=== PATIENT | female | born 1955 | race Caucasian/White ===

== ENCOUNTER 2018-04-07 18:34 | Emergency (ER) | payer MEDICARE, SELFPAY ==
[2018-04-07 18:42] VITALS: BP 150/92; PULSE 71; RESP 16; TEMP 36.5; BMI 24.9
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
[2018-04-07] MEDS: TET,DIPH,PERTUSS(ACELL),VAC/PF 0.5 ML SYRINGE IM (20:02)
[2018-04-07 21:36] VITALS: BP 159/95; PULSE 82; RESP 15; O2SAT 100
[2018-04-07] MEDS: cephALEXin 250 MG PREPACK 1 BOTTLE MISC (21:38)
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
== END 2018-04-07 21:45 | disposition home or self-care (01) ==
PROVIDERS: Emergency Provider Internal Medicine; PCP Student in an Organized Health Care Education/Training Program
DX: S61.412A Laceration without foreign body of left hand, initial encounter (principal); W26.0XXA Contact with knife, initial encounter
CPT/HCPCS: 12001; 73130; 90471; 99282; 99283; 90715

== ENCOUNTER → 2018-05-11 07:28 | Outpatient (CLI) | payer MEDICARE, SELFPAY ==
--- NOTE | 2018-05-11 | DI.US.S_ITS ---
PROCEDURE: US RENAL COMPLETE INDICATIONS: RENAL MASS TECHNIQUE: Real-time scanning was performed of the kidneys and bladder, with image documentation. COMPARISON: [facility], CT, ABDOMEN W&WO CONTRAST, 11/25/2017, 11:56. [facility], US, RENAL COMPLETE, 11/13/2017, 12:02. FINDINGS: Kidneys: Kidneys are normal in size. Right kidney measures 10.9 cm long; left kidney measures 10.3 cm long. Right renal cortical thickness is 1.7 cm; left renal cortical thickness is 1.4 cm. Renal cortical echotexture is normal. No hydronephrosis or nephrolithiasis. Bilateral angiomyolipomas are reidentified. In the right upper pole, the lesion measures 14 x 15 x 16 mm compared to 14 x 16 x 16 mm on prior ultrasound. In the left lower pole, the lesion measures 16 x 19 x 22 mm compared to 16 x 17 x 17 mm on prior ultrasound. Bladder: The urinary bladder was nondistended and not examined on this study. Miscellaneous: No free pelvic fluid. IMPRESSION: Bilateral hyperechoic cortical mass lesions remain consistent with angiomyolipomas and showed no significant change in size from prior exam on 6 month followup. Additional followup in one year is suggested. Dictated by: Zurdo Orr M.D. on 05/11/2018 at 8:16 Approved by: Zurdo Orr M.D. on 05/11/2018 at 8:23
== END ==
PROVIDERS: PCP Student in an Organized Health Care Education/Training Program; Visit Provider Physician Assistant
DX: N28.89 Other specified disorders of kidney and ureter (principal)
CPT/HCPCS: 76770

== ENCOUNTER → 2018-12-10 11:31 | Outpatient (CLI) | payer MEDICARE, SELFPAY ==
--- NOTE | 2018-12-10 | DI.US.S_ITS ---
PROCEDURE: US RENAL COMPLETE INDICATIONS: BENIGN LIPOMATOUS NEOPLASM OF KIDNEY TECHNIQUE: Real-time scanning was performed of the kidneys and bladder, with image documentation. COMPARISON: [facility], US, US RENAL COMPLETE, 05/11/2018, 7:56. [facility], CT, ABDOMEN W&WO CONTRAST, 11/25/2017, 11:56. [facility], US, RENAL COMPLETE, 11/13/2017, 12:02. FINDINGS: Kidneys: Kidneys are normal in size. Right kidney measures 11.4 cm long; left kidney measures 10.6 cm long. Right renal cortical thickness is 1.6 cm; left renal cortical thickness is 1.5 cm. Renal cortical echotexture is normal. No hydronephrosis. Bilateral echogenic cortical renal masses redemonstrated unchanged measuring up 1.7 cm on the right and 1.5 cm on the left consistent with angiomyolipomas. Bladder: Pre-void bladder volume is 177 mL. Post-void residual is 9 mL. Pre-void images demonstrate no intraluminal masses or stones. On pre-void images, bilateral ureteral jets are noted with color Doppler interrogation. (Of note, ureteral jets may not be detectable in up to 25% of cases due to insufficient differences in specific gravity between ureteral and bladder urine). Miscellaneous: No free pelvic fluid. IMPRESSION: Bilateral renal angiomyolipomas unchanged. Continued sonographic surveillance recommended. Dictated by: Yoseph SINGH Interpreted: Zaynab Villalba MD on 12/10/2018 at 13:57 Approved by: Zaynab Villalba M.D. on 12/10/2018 at 14:49
== END ==
PROVIDERS: PCP Nurse Practitioner Family; Visit Provider Urology
DX: D17.71 Benign lipomatous neoplasm of kidney (principal)
CPT/HCPCS: 76770

== ENCOUNTER 2019-05-13 06:31 | Observation (INO) | payer MEDICARE, SELFPAY ==
[2019-04-26 08:19] VITALS: BMI 23.1
[2019-05-13] VITALS (38 sets, daily range): BP systolic 107–164; BP diastolic 63–112; PULSE 59–96; RESP 9–36; TEMP 36.1–37.1; O2SAT 92–98; BMI 22.7
--- NOTE | 2019-05-13 | DI.RAD.S_ITS ---
PROCEDURE: XR CHEST 1V INDICATIONS: PNEUMOTHORAX POST OPERATIVE TECHNIQUE: One view of the chest was acquired. COMPARISON: [facility], CR, XR CHEST 1V, 05/13/2019, 10:40. FINDINGS: Surgical changes and devices: Port-A-Cath is present. Suture material is noted overlying the left upper quadrant. Lungs and pleura: Previously identified left pneumothorax is unchanged compared to prior exam. Mediastinum: Patchy areas of opacity are present within the bases and retrocardiac region appearing slightly more prominent when compared to prior exam. Bones and chest wall: No suspicious bony lesions. Overlying soft tissues appear unremarkable. IMPRESSION: Stable appearance of left pneumothorax. Increased retrocardiac and bibasilar opacities which are suspected to represent atelectasis. Small areas of superimposed fluid cannot be excluded. Dictated by: Jadyn Dale M.D. on 05/13/2019 at 15:36 Approved by: Jadyn Dale M.D. on 05/13/2019 at 15:37
[2019-05-13] MEDS: LACTATED RINGERS 1,000 ML 42 ML IV ×2 (07:07→09:54)
--- NOTE | 2019-05-13 07:42 | PM.HP.1 ---
History of Present Illness Date Patient Seen: 05/13/19 Time Patient Seen: 07:40 Chief complaint: [id number] Narrative: The patient is a woman who gets infusions of gammaglobulin periodically in is in need of IV access. She is here for Port-A-Cath. She is right-hand dominant. Patient History Medical History Easy bruisability (Acute) Fibromyalgia (Acute) H/O: hysterectomy (Acute ~10/1998) Hx of Sjogren's disease (Acute) Hypogammaglobulinemia (Acute) Long-term current use of intravenous immunoglobulin (IVIG) (Acute) Scar tissue (Acute ~01/2013) Sinus drainage (Acute) Surgical History History of 3 sections (Acute) History of dilation and curettage (Acute ~1972) History of lumbar spinal fusion (Acute ~11/1998) Hx of appendectomy (Acute ~1978) Hx of bilateral cataract extraction (Acute ~09/2012) Hx of cholecystectomy (Acute ~06/1985) Hx of discectomy (Acute ~02/1997) Hx of hand surgery (Acute ~07/2012) Hx of rhinoplasty (Acute ~09/2012) Hx of tonsillectomy (Acute ~1961) Hx of tubal ligation (Acute ~1981) S/P gastric bypass (Acute ~06/1985) Social History household members: spouse Smoking Status: Never smoker Family & Social History Social History: household members spouse Tobacco & Substance use: Smoking Status Never smoker alcohol intake frequency 0-2 drinks per day Substance Use Type does not use Meds Home Medications Medication Instructions Recorded Confirmed Type hydrocodone-acetaminophen [[place]] 1 tab PO PRN PRN #0 tab 05/17/16 05/13/19 History doxazosin 8 mg PO HS #0 03/07/17 05/13/19 History eszopiclone [Lunesta] 3 mg PO HSP PRN #0 10/04/17 05/13/19 History ipratropium bromide 1 spray INTRANASAL DAILY #0 10/04/17 05/13/19 History amoxicillin 500 mg PO QDAY 05/14/18 07/18/19 History duloxetine [Cymbalta] 60 mg PO DAILY 06/30/18 05/13/19 History fentanyl 25 mcg TRANSDERMAL Q72H 06/30/18 05/13/19 History cyclobenzaprine 10 mg PO TID PRN 03/31/19 05/13/19 History Allergies Allergy/AdvReac Type Severity Reaction Status Date / Time Sulfa (Sulfonamide Allergy Unknown Verified 05/13/19 07:17 Antibiotics) [SULFA (SULFONAMIDE ANTIBIOTICS)] Review of Systems Review of Systems No chest pain or prior heart attacks. No breathing issues. No black or bloody bowel movements. No seizures or blackouts. Exam Vital Signs (past 8 hours): - 05/13/19 07:04 Temperature 97.7 F Pulse Rate 69 Respiratory Rate 16 Blood Pressure 130/78 Pulse Oximetry 98 Oxygen Delivery Method Room Air Narrative Exam Narrative: Pleasant cooperative patient no apparent distress. Lungs are clear to auscultation. No rales or rhonchi. Heart regular rate and rhythm no murmur gallop. Patient is alert and oriented x3. No skin lesions seen on the chest wall. No nodes felt in the neck or supraclavicular areas and no bruit in the neck. Assessment & Plan Assessment & Plan narrative: Patient for Port-A-Cath. I have discussed the procedure and rationale with her. Risks of bleeding, infection, lung collapse which would necessitated tube placed in her chest, DVT with possible arm swelling or pulmonary embolism were discussed. She appears to understand wishes to proceed.
[2019-05-13] MEDS: CEFAZOLIN 2 GM/100 ML FROZ.PIGGY IV (07:44)
--- NOTE | 2019-05-13 07:46 | P.HP_ITS ---
History of Present Illness Date Patient Seen: 05/13/19 Time Patient Seen: 07:40 Chief complaint: [id number] Narrative: The patient is a woman who gets infusions of gammaglobulin periodically in is in need of IV access. She is here for Port-A-Cath. She is right-hand dominant. Patient History Medical History Easy bruisability (Acute) Fibromyalgia (Acute) H/O: hysterectomy (Acute ~10/1998) Hx of Sjogren's disease (Acute) Hypogammaglobulinemia (Acute) Long-term current use of intravenous immunoglobulin (IVIG) (Acute) Scar tissue (Acute ~01/2013) Sinus drainage (Acute) Surgical History History of 3 sections (Acute) History of dilation and curettage (Acute ~1972) History of lumbar spinal fusion (Acute ~11/1998) Hx of appendectomy (Acute ~1978) Hx of bilateral cataract extraction (Acute ~09/2012) Hx of cholecystectomy (Acute ~06/1985) Hx of discectomy (Acute ~02/1997) Hx of hand surgery (Acute ~07/2012) Hx of rhinoplasty (Acute ~09/2012) Hx of tonsillectomy (Acute ~1961) Hx of tubal ligation (Acute ~1981) S/P gastric bypass (Acute ~06/1985) Social History household members: spouse Smoking Status: Never smoker Family & Social History Social History: household members spouse Tobacco & Substance use: Smoking Status Never smoker alcohol intake frequency 0-2 drinks per day Substance Use Type does not use Meds Home Medications Medication Instructions Recorded Confirmed Type hydrocodone-acetaminophen [[place]] 1 tab PO PRN PRN #0 tab 05/17/16 05/13/19 History doxazosin 8 mg PO HS #0 03/07/17 05/13/19 History eszopiclone [Lunesta] 3 mg PO HSP PRN #0 10/04/17 05/13/19 History ipratropium bromide 1 spray INTRANASAL DAILY #0 10/04/17 05/13/19 History amoxicillin 500 mg PO QDAY 05/14/18 07/18/19 History duloxetine [Cymbalta] 60 mg PO DAILY 06/30/18 05/13/19 History fentanyl 25 mcg TRANSDERMAL Q72H 06/30/18 05/13/19 History cyclobenzaprine 10 mg PO TID PRN 03/31/19 05/13/19 History Allergies Allergy/AdvReac Type Severity Reaction Status Date / Time Sulfa (Sulfonamide Allergy Unknown Verified 05/13/19 07:17 Antibiotics) [SULFA (SULFONAMIDE ANTIBIOTICS)] Review of Systems Review of Systems No chest pain or prior heart attacks. No breathing issues. No black or bloody bowel movements. No seizures or blackouts. Exam Vital Signs (past 8 hours): - 05/13/19 07:04 Temperature 97.7 F Pulse Rate 69 Respiratory Rate 16 Blood Pressure 130/78 Pulse Oximetry 98 Oxygen Delivery Method Room Air Narrative Exam Narrative: Pleasant cooperative patient no apparent distress. Lungs are clear to auscultation. No rales or rhonchi. Heart regular rate and rhythm no murmur gallop. Patient is alert and oriented x3. No skin lesions seen on the chest wall. No nodes felt in the neck or supraclavicular areas and no bruit in the neck. Assessment & Plan Assessment & Plan narrative: Patient for Port-A-Cath. I have discussed the pr ocedure and rationale with her. Risks of bleeding, infection, lung collapse which would necessitated tube placed in her chest, DVT with possible arm swelling or pulmonary embolism were discussed. She appears to understand wishes to proceed.
--- NOTE | 2019-05-13 07:46 | PM.PREOP ---
Pre-operative Note Interval Note History & Physical reviewed/Exam performed by Physician: Yes Changes to H&P: No
--- NOTE | 2019-05-13 08:18 | SUR.OPER ---
Supine on padded OR bed, head on pillow, arm padded and tucked at side, legs uncrossed, safety belt at thigh, tape over blanket over lower legs .
[2019-05-13] MEDS: LIDOCAINE 1% 30 ML INJ INJ (08:33)
[2019-05-13] MEDS: HEPARIN 5,000 UNIT, SODIUM CHLORIDE 0.9% 50 ML IV (08:34)
--- NOTE | 2019-05-13 08:48 | DI.RAD.S_ITS ---
PROCEDURE: XR CHEST 1V INDICATIONS: POST OP TECHNIQUE: One view of the chest was acquired. COMPARISON: None. FINDINGS: Surgical changes and devices: Status post placement of left chest port with tip projecting in the lower SVC.. Lungs and pleura: Small apical left pneumothorax. Scattered bibasilar atelectasis. No pleural effusion. Mediastinum: Mediastinal contours appear normal. Heart size is normal. Bones and chest wall: No suspicious bony lesions. Overlying soft tissues appear unremarkable. IMPRESSION: Small left apical pneumothorax. Dr. Manning already aware of this finding at time of study interpretation. Dictated by: Kamron Talbert M.D. on 05/13/2019 at 11:08 Approved by: Kamron Talbert M.D. on 05/13/2019 at 11:10
--- NOTE | 2019-05-13 08:55 | SUR.PHASEI ---
drsg to left chest observed to be c/d/i.
[2019-05-13] MEDS: fentaNYL 100 MCG/2 ML INJ 50 MCG IV ×4 (09:09→10:03)
--- NOTE | 2019-05-13 09:12 | PM.OP.1 ---
Operative Date/Time/Diagnoses Date of procedure: 05/13/19 Time of procedure: 09:12 Pre-op diagnosis: Hypogammaglobulinemia Post-op diagnosis: same Procedure & Clinicians Procedure: Placement of left subclavian Port-A-Cath Same procedure as scheduled: Yes Indications: Need for IV access for frequent gammaglobulin infusions Surgeon: Huber Manning Click Yes if Unassisted: Yes Anesthesia Type: General Operative Notes Findings: Tip in the distal SVC. Patient has a pneumothorax. Closure Type: primary Specimen(s): none sent Prosthetic devices, grafts, tissues, transplants, or devices: Port Applied: catheter Estimated Blood Loss (mL): 5 Blood products transfused: none Procedure in detail: The patient was placed supine on operating room table and underwent general LMA anesthesia. A roll was placed between her shoulders and she was prepped and draped in the usual fashion. Local anesthetic was infiltrated in a field block fashion beneath the left clavicle. A transverse incision was made in the skin. The patient was placed in Trendelenburg and a needle inserted on 2nd attempt into the subclavian vein. Guidewire was passed and the needle removed. The wire appeared to be going into the appropriate location. A pocket was created inferior to the incision and the port placed within it. The catheter length was tapered to appropriate length. Dilator and introducer were passed over the guidewire. The guidewire was removed along with the dilator leaving the introducer in place. The catheter was passed through the introducer and the introducer was peeled away leaving the catheter tip in the very distal SVC. The port was secured to the chest wall with interrupted silk sutures. Nobles needle was inserted into the port and it was aspirated and flushed with heparinized saline. The patient was taken out of Trendelenburg. The subcu was closed with interrupted 3 0 Vicryl and skin was closed running 4 0 Vicryl subcuticular stitch and Steri-Strips. Dressing was applied and the patient was awakened extubated and taken the recovery area in good condition. Complications: other ( pneumothorax which will be observed. If it enlarges I will place a chest tube.) Condition: stable Disposition: PACU
[2019-05-13] MEDS: HYDROMORPHONE 2 MG INJ 0.25 MG IV ×8 (09:15→15:36)
--- NOTE | 2019-05-13 09:27 | SUR.PHASEI ---
Pt in stable condition, vss. Per Dr. Manning will continue to monitor and observe pt in PACU until further notice from Dr. Manning.
--- NOTE | 2019-05-13 10:35 | DI.RAD.S_ITS ---
PROCEDURE: XR CHEST 1V INDICATIONS: s/p port placement TECHNIQUE: One view of the chest was acquired. COMPARISON: [facility], , XR CHEST 1V, 05/13/2019, 9:02. FINDINGS: Surgical changes and devices: Left chest port the tip unchanged projecting in the lower SVC. Lungs and pleura: No pleural effusion. No new focal consolidation. Left apical pneumothorax may be slightly enlarged since earlier same day at 0902 hours. This could also be due to redistribution Mediastinum: Mediastinal contours appear normal. Heart size is normal. Bones and chest wall: No suspicious bony lesions. Overlying soft tissues appear unremarkable. IMPRESSION: Possible slight enlargement of left apical pneumothorax. A short interval followup chest radiograph is pending. Findings personally discussed with Dr. Manning at the time of study interpretation. No new focal consolidation. Dictated by: Kamron Talbert M.D. on 05/13/2019 at 11:10 Approved by: Kamron Talbert M.D. on 05/13/2019 at 11:17
--- NOTE | 2019-05-13 10:57 | SUR.PHASEI ---
bedside report given to RODNEY Arenas at this time. Pt in stable condition, vss. Transferred care of pt to RONDEY Arenas at this time.
--- NOTE | 2019-05-13 16:34 | SUR.PHASEII ---
Pt held r/t PAC placement to left chart resulting in a sm pneumothorax. VSS, denied SOB or pain r/t pneumothorax. Pt did experience pain r/t PAC placement and received 0.5mg of dilaudid approx 30 minutes prior to going to ICU where she was admitted under observation status. Small bore at chest tube catheter was sent with pt in the event pneumo became enlarged. Report to RODNEY Su given BS. Pt care transferred with pt in stable condition.
[2019-05-13] MEDS: HYDROCODONE/ACET 10/325 TABLET 1 TAB PO (17:20)
[2019-05-13] MEDS: AMOXICILLIN 250 MG CAPSULE 500 MG PO (20:04)
[2019-05-13] MEDS: DOXAZOSIN 4 MG TABLET 8 MG PO (20:05)
--- NOTE | 2019-05-13 21:10 | PC.NURSE ---
2100- Patient has no SOB or desaturation. Respirations are unlabored. Rate is 16 to 20. Saturation is 96-97% Will monitor.
[2019-05-14 00:07] VITALS: BP 117/65; PULSE 72; RESP 12; TEMP 36.4; O2SAT 98
[2019-05-14] MEDS: HYDROCODONE/ACET 10/325 TABLET 1 TAB PO ×4 (01:51→14:17)
[2019-05-14 05:12] VITALS: BP 111/61; PULSE 83; RESP 22; O2SAT 98
--- NOTE | 2019-05-14 06:14 | DI.RAD.S_ITS ---
PROCEDURE: XR CHEST 1V INDICATIONS: pneumothorax TECHNIQUE: One view of the chest was acquired. COMPARISON: [facility], CT, ABDOMEN W&WO CONTRAST, 11/25/2017, 11:56. [facility], CR, XR CHEST 1V, 05/13/2019, 15:14. FINDINGS: Surgical changes and devices: Left-sided port with the tip terminating at the cavoatrial junction, unchanged. Gastric and left abdomen staple lines. Lungs and pleura: Improving left-sided pneumothorax, now small and measuring approximately 0.9 cm, previously 3 cm. The pneumothorax may appear smaller do to slight leftward rotation. No pneumothorax on the right. Retrocardiac opacity is stable and favored to represent atelectasis. No pleural effusion. Mediastinum: No mediastinal shift. Heart size is normal. Bones and chest wall: No suspicious bony lesions. Small volume of subcutaneous emphysema in the left neck. IMPRESSION: Improving small left-sided pneumothorax. Left neck subcutaneous emphysema. Dictated by: Bari Alexander M.D. on 05/14/2019 at 7:09 Approved by: Bari Alexander M.D. on 05/14/2019 at 7:18
[2019-05-14 08:00] VITALS: BP 116/66; PULSE 80; RESP 18; TEMP 36.4; O2SAT 97
--- NOTE | 2019-05-14 08:17 | DI.RAD.S_ITS ---
PROCEDURE: XR CHEST 1V INDICATIONS: f/u pneumothorax TECHNIQUE: One view of the chest was acquired. COMPARISON: [facility], CR, XR CHEST 1V, 05/13/2019, 15:14. [facility], CR, XR CHEST 1V, 05/14/2019, 6:18. FINDINGS: Surgical changes and devices: Left Port-A-Cath is present. Lungs and pleura: Previously identified left pneumothorax demonstrates mild interval worsening compared to 05/14/18. Currently measures approximately 2.5 cm compared to 0.8 cm on prior exam. Retrocardiac opacity is unchanged likely atelectasis. Mediastinum: Mediastinal contours appear normal. Heart size is normal. Bones and chest wall: No suspicious bony lesions. Overlying soft tissues appear unremarkable. IMPRESSION: 1. Interval increase in size of left pneumothorax without midline shift. Dictated by: Jadyn Dale M.D. on 05/14/2019 at 9:14 Approved by: Jadyn Dale M.D. on 05/14/2019 at 9:21
[2019-05-14 13:00] VITALS: BP 131/75; PULSE 97; RESP 17; TEMP 36.9; O2SAT 98
--- NOTE | 2019-05-14 13:52 | PC.NURSE ---
Addendum entered by Kamron Suárez R.N. 05/14/19 14:19: Pt requesting to ambulate out. Declines use of w/c. States she is going to have labs drawn now. All belongings gathered and sent with pt. escorted pt to lab. Pt left in no acute distress. Original Note: Pt to d/c home per MD order. D/c packet and educational materials provided and reviewed. Pt verbalizes understanding. F/u appt with Dr. Manning and orders for CXR verbally communicated to pt. Reviewed s/s of surgical site infection. Reviewed dsg instructions. Reviewed s/s of worsening pneumothorax. Pt verbalizes understanding and states she has no further questions. Removed PIV with cath tip intact. Pt is dressing self. Awaiting ride home.
--- NOTE | 2019-05-14 14:40 | CM.IDA ---
Initial DCP Assessment Note: Pt is a 64 yo female, resident of [place], now POD#1 from Port-A-Cath placement for gammaglobulin infusions . PCP: Yazmin Holley Payer: Medicare Reviewed chart, pt discussed in multidisciplinary rounds this morning. Pt scheduled to return home today w/supportive spouse if medically cleared. Pt developed a pneumothorax post operatively so stayed the night w/ Dr Manning monitoring closely. RODNEY Coulter explained to this SHOVEL LOGGER that pt is indp and has no needs upon DC today. No needs expected from DC planning team although will remain available in case this changes today. Yazmin Foster, SHOVEL LOGGER
--- NOTE | 2019-05-14 20:36 | PM.DS.1 ---
History of Present Illness Chief complaint: [id number] Narrative: The patient is a woman who gets infusions of gammaglobulin periodically in is in need of IV access. She is here for Port-A-Cath. She is right-hand dominant. Discharge Providers Date of admission: 05/13/19 06:31 Discharge Date: 05/14/19 Primary care physician: MICHELLE Huff Consults: 05/13/19 17:01 Consult to Discharge Planning Routine Comment: Discharge provider: Huber Manning MD Summary Discharge Diagnosis: iatrogenic pnuemothorax hypogammaglobulinemia chronic chronic back pain post operation depression chronic fibromyalgia chronic Sjogren's disease chronic Hospital Course: Patient suffered an iatrogenic pneumothorax during placement of her Port-A-Cath. She had a partial deflation of her lung that stabilized and did not increase over almost 24 hours of observation. No chest tube was therefore ever inserted. She was discharged with strict instructions to come to the emergency room for increasing chest pain, increase in heart rate or shortness of breath. Status at Discharge Cognitive/behavioral status at discharge: oriented Functional status at discharge: independent ambulation Overall status at discharge: patient is progressing back to baseline Time Spent with Patient Less than 30 minutes Exam Vital Signs (past 8 hours): - 05/14/19 13:00 Temperature 98.4 F Pulse Rate 97 H Respiratory Rate 17 Blood Pressure 131/75 Pulse Oximetry 98 Oxygen Delivery Method Room Air Oxygen Flow Rate 0 Narrative Exam Narrative: Operative no apparent distress. Left side moving air but decreased when compared to the right. Dressing left infraclavicular fossa intact and dry. Heart regular rate and rhythm without murmur gallop Objective Labs Labs: Laboratory Results - last 24 hr 05/13/19 17:15 Nasal Screen MRSA (PCR) Negative for mrsa Discharge Plan Discharge Plan Patient Disposition: Home Discharge comment: You have a partial collapse of her left lung. It is been stable for the last 24 hours. Should you develop worsening chest pain, or rapid heart rate, shortness of breath go to the emergency room. Otherwise I will see this Friday. Please come before the appointment and have a chest x-ray done. I already have put the order in. You should be able to go to registration and have it done immediately. Discharge Med Rec/Prescriptions Prescriptions: Continued hydrocodone-acetaminophen [[place]] 10 MG/325 MG tablet 1 tab PO PRN PRN (Reason: Pain (Scale Score 4-6)) Qty: 0 RF: 0 doxazosin 8 MG tablet 8 mg PO HS Qty: 0 RF: 0 eszopiclone [Lunesta] 3 MG tablet 3 mg PO HSP PRN (Reason: Insomnia) Qty: 0 RF: 0 ipratropium bromide 0.06 % spray,non-aerosol 1 spray Intranasal DAILY Qty: 0 RF: 0 amoxicillin 500 mg Tablet 500 mg PO QDAY RF: 0 fentanyl 75 mcg/hr Patch 72 Hour 25 mcg TRANSDERMAL Q72H RF: 0 duloxetine [Cymbalta] 60 mg Capsule,Delayed Release(Dr/Ec) 60 mg PO DAILY RF: 0 cyclobenzaprine 10 mg Tablet 10 mg PO TID PRN (Reason: Muscle Pain) RF: 0 Other Ambulatory Orders: XR chest 1V (Routine) Timeframe: 20190518 Location: Radiology Ordered By: Huber Manning Follow up/Referrals: Yazmin Jules ARNP [Primary Care Provider] - Huber Manning MD [Physician] - 05/18/19 1:30 pm (Please call my office to schedule an appointment in about 10-14 days. If you need to reach a doctor after hours you may call our office and hold through the entire message. At the end you will be connected with page fence machine operator) Provider Discharge Instructions Diet: Diet as Tolerated Activity: Avoid vigorous use of her left arm for at least 2 weeks. You may use it normally. Skin/Wound/Dressing Care Report to your healthcare provider any signs of infection, such as:: increased pain, unusual drainage and unusual redness Dressing: You may remove the plastic dressing and Telfa under it in 1 days and shower. Do not immerse under water until after your visit with the doctor. Do not pull off the white strip of tape under the Telfa. Let it fall off on its own. If it is not off 1I see you in the office I will remove it. Visit Report/Discharge Packet Instructions: DI for Pneumothorax, DI for Implanted Venous Access Port, [facility]: Wound Care Stand Alone Forms: Surgery Discharge Discharge Data Primary Care Provider: Yazmin Jules Attending Provider: Huber Manning Admit Date/Time: 05/13/19 06:31 Discharges patient from system. Discharge Date/Time: 05/14/19 14:21
== END 2019-05-14 14:21 | disposition home or self-care (01) ==
LOC: OR 16:58 → ICU 05-14 13:49
PROVIDERS: Admitting Provider Specialist; PCP Nurse Practitioner Family; Visit Provider Specialist
PROC: (CPT 36561; principal; 2019-05-13 07:45)
DX: J95.811 Postprocedural pneumothorax (principal); D80.1 Nonfamilial hypogammaglobulinemia; E61.1 Iron deficiency; Z45.2 Encounter for adjustment and management of vascular access device; I73.9 Peripheral vascular disease, unspecified; E78.5 Hyperlipidemia, unspecified
CPT/HCPCS: 36561; 36415; 71045; 76000; 80061; 87797; C1788; G0378; J0690; J1170; J1644; J3010

== ENCOUNTER → 2019-05-14 14:22 | Outpatient (CLI) | payer MEDICARE, SELFPAY ==
[2019-05-13 17:37] VITALS: BMI 22.7
[2019-05-14 15:53] LABS: Cholesterol 181 mg/dL (140-199); HDL Cholesterol 65 mg/dL (40-60); LDL Cholesterol Calculated 99 mg/dL (<100); Triglycerides 84 mg/dL (35-150)
== END ==
PROVIDERS: Family Provider Nurse Practitioner Family; PCP Nurse Practitioner Family; Visit Provider Internal Medicine Cardiovascular Disease
DX: I73.9 Peripheral vascular disease, unspecified (principal); E78.5 Hyperlipidemia, unspecified
CPT/HCPCS: 36415; 80061

== ENCOUNTER → 2019-05-18 12:24 | Outpatient (CLI) | payer MEDICARE, SELFPAY ==
[2019-05-13 17:37] VITALS: BMI 22.7
--- NOTE | 2019-05-18 12:46 | DI.RAD.S_ITS ---
PROCEDURE: XR CHEST 1V INDICATIONS: f/u iatrogenic pneumothorax. TECHNIQUE: One view of the chest was acquired. COMPARISON: [facility], CR, XR CHEST 1V, 05/13/2019, 15:14. [facility], CR, XR CHEST 1V, 05/14/2019, 6:18. [facility], CR, XR CHEST 1V, 05/14/2019, 8:22. FINDINGS: Surgical changes and devices: There is a Port-A-Cath on the left with the tip in the SVC. Lungs and pleura: There is a small left apical pneumothorax, which is minimally changed when compared with the last chest x-ray dated 05/14/2019. There are small pleural effusions. No pleural effusions or pneumothorax. Mediastinum: Mediastinal contours appear normal. Heart size is normal. Bones and chest wall: No suspicious bony lesions. Overlying soft tissues appear unremarkable. IMPRESSION: Stable small left apical pneumothorax. Dictated by: Kvng Roblero M.D. on 05/18/2019 at 14:50 Approved by: Kvng Roblero M.D. on 05/18/2019 at 14:53
[2019-05-18 13:03] LABS: Add Manual Diff / Slide Review NO; Basophils Absolute Auto 0 /uL (0-100); Basophils Percent Auto 0.7 % (0-2); Eosinophils Absolute Auto 200 /uL (0-450); Eosinophils Percent Auto 3.3 % (2-4); Hematocrit 42.3 % (36-46); Hemoglobin 13.8 g/dL (12.0-16.0); Lymphocytes Absolute Auto 1500 /uL (1100-4500); Lymphocytes Percent Auto 32.4 % (25-40); Mean Corpuscular HGB Conc 32.6 % (30-36); Mean Corpuscular Volume 91.9 fL (80-100); Monocytes Absolute Auto 300 /uL (0-900); Neutrophils Absolute Auto 2700 /uL (1500-7000); Neutrophils Percent Auto 57.6 % (50-75); Platelet Count 359 X10^3/uL (150-400); Red Blood Cell Count 4.61 X10^6/uL (4.0-5.2); Red Cell Distribution Width 14.5 % (11.6-14.8); White Blood Cell Count 4.8 X10^3/uL (4.5-11.0)
[2019-05-18 13:18] LABS: Alanine Aminotransferase 39 IU/L (9-52); Albumin 4.3 g/dL (3.5-5.0); Albumin Globulin Ratio 1.5 (1.0-2.8); Alkaline Phosphatase 89 U/L (38-126); Aspartate Aminotransferase 27 IU/L (14-36); Bilirubin Total 0.5 mg/dL (0.2-1.3); Blood Urea Nitrogen 12 mg/dL (7-17); Calcium 9.9 mg/dL (8.4-10.2); Carbon Dioxide 27 mmol/L (22-32); Chloride 99 mmol/L (98-107); Estimated Glomerular Filt Rate > 60.0 mL/min (>60); Globulin 2.8 g/dL (1.7-4.1); Glucose 88 mg/dL (80-110); HEMOLYSIS < 15 (0-50); Potassium 3.9 mmol/L (3.4-5.1); Sodium 137 mmol/L (137-145); Total Protein 7.1 g/dL (6.3-8.2)
[2019-05-21 08:04] LABS: Immunoglobulin G, Quantitative 699 mg/dL (600-1540)
== END ==
PROVIDERS: Family Provider Specialist; PCP Nurse Practitioner Family
DX: D80.1 Nonfamilial hypogammaglobulinemia (principal); J95.811 Postprocedural pneumothorax
CPT/HCPCS: 36415; 71045; 80053; 82784; 85025

== ENCOUNTER → 2019-06-01 14:15 | Outpatient (CLI) | payer MEDICARE, SELFPAY ==
[2019-05-13 17:37] VITALS: BMI 22.7
--- NOTE | 2019-06-01 | DI.RAD.S_ITS ---
PROCEDURE: XR CHEST 2V INDICATIONS: CHEST PAIN, PORT PAIN TECHNIQUE: 2 views of the chest were acquired. COMPARISON: [facility], CR, XR CHEST 1V, 05/18/2019, 12:59. [facility], CR, XR CHEST 1V, 05/14/2019, 8:22. FINDINGS: Surgical changes and devices: None. Lungs and pleura: Lungs are clear. No pleural effusions or pneumothorax. Mediastinum: Mediastinal contours are normal. Heart size is normal. Bones and chest wall: No suspicious bony abnormalities. Soft tissues appear unremarkable. IMPRESSION: Left-sided Port-A-Cath in normal position, source of reported pain is not identified. Resolution of prior pneumothorax upper lobe area that was present after port placement. Dictated by: Anthony Connor M.D. on 06/01/2019 at 16:05 Approved by: Anthony Connor M.D. on 06/01/2019 at 16:05
== END ==
PROVIDERS: PCP Nurse Practitioner Family; Visit Provider Nurse Practitioner Family
DX: R07.9 Chest pain, unspecified (principal); T82.847A Pain due to cardiac prosthetic devices, implants and grafts, initial encounter
CPT/HCPCS: 71046

== ENCOUNTER → 2019-09-27 09:33 | Outpatient (CLI) | payer MEDICARE, SELFPAY ==
[2019-05-13 17:37] VITALS: BMI 22.7
--- NOTE | 2019-09-27 | DI.US.S_ITS ---
PROCEDURE: US SOFT TISSUE HEAD AND NECK INDICATIONS: EPIDERMAL CYST TECHNIQUE: Real-time scanning was performed of the neck region of interest, with image documentation. COMPARISON: None. FINDINGS: No sonographically visible fluid collection or mass seen in the region of the palpable abnormality of the left forehead. IMPRESSION: No sonographic soft tissue abnormality. Dictated by: Yoseph SINGH Interpreted: Virgen Lawson MD on 09/27/2019 at 10:10 Approved by: Virgen Lawson MD, PhD on 09/27/2019 at 10:38
== END ==
PROVIDERS: PCP Nurse Practitioner Family
DX: L72.0 Epidermal cyst (principal)
CPT/HCPCS: 76536

== ENCOUNTER → 2019-11-29 09:47 | Outpatient (CLI) | payer MEDICARE, SELFPAY ==
[2019-05-13 17:37] VITALS: BMI 22.7
--- NOTE | 2019-11-29 | DI.MG.S_ITS ---
BILATERAL DIGITAL SCREENING MAMMOGRAM 3D/2D WITH CAD: 11/29/2019 CLINICAL: Routine screening. Comparison is made to exam dated: 10/08/2016 mammogram - [facility]. There are scattered fibroglandular elements in both breasts. Current study was also evaluated with a Computer Aided Detection (CAD) system. There are benign calcifications in both breasts. There also are benign vascular calcifications in both breasts. No significant masses, calcifications, or other findings are seen in either breast. There has been no significant interval change. IMPRESSION: There is no mammographic evidence of malignancy. A 1 year screening mammogram is recommended. This exam was interpreted at Station ID: [id number]. NOTE: For mammograms, a report in lay terms will be sent to the patient. Approximately 15% of breast malignancies will not be visualized mammographically. In the management of a palpable breast mass, a negative mammogram must not discourage biopsy of a clinically suspicious lesion. Electronically Signed By: Herve granda/jewel:11/29/2019 14:26:16 letter sent: Normal Exam ACR BI-RADS Category 2: Benign Finding(s) 3342F
== END ==
PROVIDERS: PCP Nurse Practitioner Family; Referring Provider Nurse Practitioner Family; Visit Provider Nurse Practitioner Family
DX: Z12.31 Encounter for screening mammogram for malignant neoplasm of breast (principal)
CPT/HCPCS: 77063; 77067

== ENCOUNTER → 2019-12-27 09:38 | Outpatient (CLI) | payer MEDICARE, SELFPAY ==
[2019-05-13 17:37] VITALS: BMI 22.7
--- NOTE | 2019-12-27 | DI.US.S_ITS ---
PROCEDURE: US RENAL COMPLETE INDICATIONS: BENIGN LIPOMATOUS NEOPLASM OF KIDNEY TECHNIQUE: Real-time scanning was performed of the kidneys and bladder, with image documentation. COMPARISON: [facility], RENAL COMPLETE, 12/10/2018, 12:16. [facility], RENAL COMPLETE, 05/11/2018, 7:56. FINDINGS: Kidneys: Kidneys are normal in size. Right kidney measures 10.9 cm long; left kidney measures 10.8 cm long. Right renal cortical thickness is 1.2 cm; left renal cortical thickness is 1.6 cm. Renal cortical echotexture is normal. No hydronephrosis or nephrolithiasis. There is an echogenic lesion identified involving the right kidney that measures 2.2 x 2.2 x 2.0 cm. The small and echogenic focus along the inferior margin of the left kidney is not as well-seen on the current examination, but appears to be unchanged. Bladder: Pre-void bladder volume is 118 mL. Post-void residual is 13 mL. Pre-void images demonstrate no intraluminal masses or stones. On pre-void images, bilateral ureteral jets are noted with color Doppler interrogation. Miscellaneous: No free pelvic fluid. IMPRESSION: 1. No hydronephrosis or shadowing nephrolithiasis. 2. Bilateral angiomyolipomas. Dictated by: Juan Antonio El M.D. on 12/27/2019 at 9:48 Approved by: Juan Antonio El M.D. on 12/27/2019 at 9:53
== END ==
PROVIDERS: PCP Nurse Practitioner Family; Referring Provider Nurse Practitioner Family; Visit Provider Urology
DX: D17.71 Benign lipomatous neoplasm of kidney (principal)
CPT/HCPCS: 76770

== ENCOUNTER → 2020-01-08 07:54 | Outpatient (CLI) | payer MEDICARE, SELFPAY ==
[2019-05-13 17:37] VITALS: BMI 22.7
--- NOTE | 2020-01-08 | DI.MRI.S_ITS ---
PROCEDURE: MR HEAD/BRAIN WO CON INDICATIONS: Unspecified abnormal involuntary movements TECHNIQUE: Noncontrast axial T1 spin echo, axial T2 fast spin echo, sagittal and axial FLAIR, coronal T2 fast spin echo, axial gradient echo, axial diffusion and ADC through the brain. COMPARISON: None. FINDINGS: Image quality: Excellent. CSF Spaces: Basal cisterns are patent. No extra-axial fluid collections. Ventricles are normal in size and shape. Brain: No intracranial masses or hemorrhage. Patel/white matter interface is normal. Brainstem appears normal. Diffusion-weighted images demonstrate no acute ischemic insult. No definite chronic ischemic insults but there are somewhat unusually prominent foci of elevated flair signal within the deep white matter of each hemisphere, several of which are oriented along the periphery of the middle third of the corpus callosum, bilaterally, and several of which have a centripetal orientation in their long axis. The appearance raises concern for underlying multiple sclerosis. Normal intravascular flow voids are present. Skull and face: Calvarium has normal marrow signal. Orbits appear normal. Sinuses: Sinuses and mastoids are clear. IMPRESSION: No acute disease, no mass lesion present. White matter foci of elevated flair signal are present, with number and size and orientation somewhat suspicious for underlying multiple sclerosis. Contrast enhanced imaging to supplement this study may be warranted to determine if any of these foci show acute characteristics (contrast enhancement). Dictated by: Anthony Connor M.D. on 01/10/2020 at 8:05 Approved by: Anthony Connor M.D. on 01/10/2020 at 8:09
[2020-01-08 09:09] LABS: Add Manual Diff / Slide Review NO; Basophils Absolute Auto 100 /uL (0-100); Basophils Percent Auto 1.4 % (0-2); Eosinophils Absolute Auto 100 /uL (0-450); Eosinophils Percent Auto 3.3 % (2-4); Hematocrit 41.6 % (36-46); Hemoglobin 13.5 g/dL (12.0-16.0); Lymphocytes Absolute Auto 1400 /uL (1100-4500); Lymphocytes Percent Auto 36.8 % (25-40); Mean Corpuscular HGB Conc 32.5 % (30-36); Mean Corpuscular Hemoglobin 28.8 PG (26-34); Mean Corpuscular Volume 88.8 fL (80-100); Monocytes Absolute Auto 300 /uL (0-900); Monocytes Percent Auto 6.6 % (3-14); Neutrophils Absolute Auto 2000 /uL (1500-7000); Neutrophils Percent Auto 51.9 % (50-75); Platelet Count 351 X10^3/uL (150-400); Red Blood Cell Count 4.69 X10^6/uL (4.0-5.2); White Blood Cell Count 3.8 X10^3/uL (4.5-11.0)
[2020-01-08 09:43] LABS: Alanine Aminotransferase 29 IU/L (<35); Albumin 4.1 g/dL (3.5-5.0); Albumin Globulin Ratio 1.5 (1.0-2.8); Alkaline Phosphatase 70 U/L (38-126); Aspartate Aminotransferase 31 IU/L (14-36); Bilirubin Total 0.4 mg/dL (0.2-1.3); Blood Urea Nitrogen 8 mg/dL (7-17); Calcium 9.4 mg/dL (8.4-10.2); Carbon Dioxide 30 mmol/L (22-32); Chloride 102 mmol/L (98-107); Estimated Glomerular Filt Rate > 60.0 mL/min (>60); Globulin 2.7 g/dL (1.7-4.1); Glucose 86 mg/dL (80-110); HEMOLYSIS < 15 (0-50); Potassium 4.4 mmol/L (3.4-5.1); Sodium 136 mmol/L (137-145); Total Protein 6.8 g/dL (6.3-8.2)
[2020-01-08 10:12] LABS: TSH w/ Reflex to FT4 1.76 uIU/mL (0.47-4.68)
[2020-01-08 13:17] LABS: C-Reactive Protein Quant < 0.5 mg/dL (<1.0)
[2020-01-08 13:18] LABS: Erythrocyte Sedimentation Rate 4 MM/HR (0-20)
== END ==
PROVIDERS: PCP Nurse Practitioner Family; Referring Provider Psychiatry & Neurology Neurology; Visit Provider Psychiatry & Neurology Neurology
DX: R25.9 Unspecified abnormal involuntary movements (principal); R51 Headache
CPT/HCPCS: 36415; 70551; 80053; 84443; 85025; 85651; 86038; 86140

== ENCOUNTER → 2020-04-18 12:30 | Outpatient (CLI) | payer MEDICARE, SELFPAY ==
[2019-05-13 17:37] VITALS: BMI 22.7
--- NOTE | 2020-04-18 | DI.MRI.S_ITS ---
PROCEDURE: MR THORACIC SPINE WO/W CON INDICATIONS: ABNORMAL MOVEMENTS TECHNIQUE: Noncontrast sagittal T1 spin echo and T2 fast spin echo, sagittal STIR, axial T1 and T2 fast spin echo through the thoracic spine. After the administration of contrast, axial and sagittal T1 spin echo with fat saturation through the thoracic spine. In this patient, coronal T2-weighted images were also performed. COMPARISON: [facility], MR, MR HEAD/BRAIN WO CON, 01/08/2020, 8:18. [facility], MR, MR HEAD/BRAIN W CON, 04/18/2020, 13:39. [facility], MR, MR CERVICAL SPINE WO/W CON, 04/18/2020, 12:44. FINDINGS: Image quality: Diagnostic, with note made of motion artifact. Alignment and curvature: Accentuated thoracic kyphosis is seen. No focal AP alignment abnormality is seen. Marrow: Marrow is of normal overall signal. No acute vertebral body compression fractures. Several remote appearing Schmorl's nodes can be seen. Scattered foci are seen, which are hyperintense on T1-weighted and T2-weighted imaging, which are most consistent with benign vertebral body hemangiomas. Spinal cord: Visualized spinal cord is of normal signal and size, without abnormal enhancement. Paraspinous soft tissues: No paravertebral masses or abnormal enhancement. Trace bilateral pleural effusions are seen. Miscellaneous: Age-appropriate degenerative changes are seen, scattered levels of minimal to mild disc space narrowing with associated endplate irregularity. Central canal and foramina appear widely patent at all scanned levels. IMPRESSION: No abnormal cord signal is seen. No abnormal enhancement is seen. Age-appropriate thoracic spine degenerative changes are seen. Trace bilateral pleural effusions are incidentally noted. Dictated by: Villa Ogden M.D. on 04/18/2020 at 13:22 Approved by: Villa Ogden M.D. on 04/18/2020 at 13:25
--- NOTE | 2020-04-18 | DI.MRI.S_ITS ---
PROCEDURE: MR HEAD/BRAIN W CON INDICATIONS: Unspecified abnormal involuntary movements TECHNIQUE: Noncontrast sagittal and axial FLAIR, axial and coronal T2 fast spin echo, axial VIBE, axial gradient echo, axial diffusion and ADC through the brain. After the administration of contrast, axial and coronal VIBE with fat saturation through the brain. COMPARISON: [facility], MR, MR HEAD/BRAIN WO CON, 01/08/2020, 8:18. FINDINGS: Image quality: Excellent. CSF spaces: Ventricles are normal in size and shape. Basal cisterns are patent. No extra-axial fluid collections. Brain: No intracranial bleeds or mass effects. Patel-white matter interface appears intact. No suspicious white matter lesions. No abnormal intracranial enhancement. Diffusion weighted images show no acute ischemic insults. Brainstem appears normal. Normal intravascular flow voids are present. Skull and face: Calvarial marrow signal is normal. Orbits appear normal. Sinuses: Sinuses and mastoids are clear. IMPRESSION: No abnormal enhancement identified, including in the areas of white matter signal changes described on the prior study. Dictated by: Kamron Talbert M.D. on 04/18/2020 at 14:09 Approved by: Kamron Talbert M.D. on 04/18/2020 at 14:14
--- NOTE | 2020-04-18 | DI.MRI.S_ITS ---
PROCEDURE: MR CERVICAL SPINE WO/W CON INDICATIONS: ABNORMAL MOVEMENTS TECHNIQUE: Noncontrast sagittal T1 spin echo and T2 fast spin echo, sagittal STIR, foraminal oblique sagittal T2 fast spin echo, axial gradient echo or T2 fast spin echo through the cervical spine. After the administration of contrast, axial and sagittal T1 spin echo with fat saturation through the cervical spine. COMPARISON: None. FINDINGS: Image quality: Excellent. Alignment and curvature: There is normal bony alignment. Marrow: Marrow is normal in overall signal, without suspicious enhancement. Spinal cord: Visualized spinal cord has normal size and signal. No cerebellar tonsillar herniation. No abnormal intramedullary enhancement. Paraspinous soft tissues: No paravertebral masses or suspicious enhancement. C2-3: Normal appearance. C3-4: Mild canal narrowing. Mild bilateral foraminal stenoses. C4-5: Moderate to severe canal narrowing. Mild right foraminal stenosis. [id number] left foraminal narrowing with slight nerve root compression C5-6: Mild canal narrowing. Moderate right foraminal stenosis with nerve root compression. Mild left foraminal stenosis with borderline nerve root compression C6-7: No canal stenosis. Mild bilateral foraminal narrowing. C7-T1: No canal stenosis. No foraminal narrowing IMPRESSION: No suspicious or abnormal cord enhancement. No cord signal abnormality. [id number] C4-C5 canal stenosis Diffuse bilateral foraminal stenoses as detailed above by spinal level Dictated by: Kamron Talbert M.D. on 04/18/2020 at 16:49 Approved by: Kamron Talbert M.D. on 04/18/2020 at 16:55
== END ==
PROVIDERS: PCP Nurse Practitioner Family; Referring Provider Psychiatry & Neurology Neurology; Visit Provider Psychiatry & Neurology Neurology
DX: R25.9 Unspecified abnormal involuntary movements (principal); R93.0 Abnormal findings on diagnostic imaging of skull and head, not elsewhere classified; M47.814 Spondylosis without myelopathy or radiculopathy, thoracic region; M48.02 Spinal stenosis, cervical region
CPT/HCPCS: 70552; 72156; 72157

== ENCOUNTER → 2020-07-04 08:54 | Outpatient (CLI) | payer MEDICARE, SELFPAY ==
[2019-05-13 17:37] VITALS: BMI 22.7
[2020-07-04 09:22] LABS: Add Manual Diff / Slide Review NO; Basophils Absolute Auto 100 /uL (0-100); Basophils Percent Auto 1.1 % (0-2); Eosinophils Absolute Auto 200 /uL (0-450); Eosinophils Percent Auto 4.8 % (2-4); Hematocrit 39.7 % (36-46); Lymphocytes Absolute Auto 1600 /uL (1100-4500); Lymphocytes Percent Auto 33.8 % (25-40); Mean Corpuscular HGB Conc 32.9 % (30-36); Mean Corpuscular Hemoglobin 28.7 PG (26-34); Mean Corpuscular Volume 87.3 fL (80-100); Monocytes Absolute Auto 300 /uL (0-900); Neutrophils Absolute Auto 2500 /uL (1500-7000); Neutrophils Percent Auto 53.3 % (50-75); Platelet Count 340 X10^3/uL (150-400); Red Blood Cell Count 4.54 X10^6/uL (4.0-5.2); White Blood Cell Count 4.7 X10^3/uL (4.5-11.0)
[2020-07-04 09:33] LABS: Alanine Aminotransferase 33 IU/L (<35); Albumin 4.2 g/dL (3.5-5.0); Albumin Globulin Ratio 1.7 (1.0-2.8); Alkaline Phosphatase 82 U/L (38-126); Aspartate Aminotransferase 38 IU/L (14-36); Bilirubin Total 0.6 mg/dL (0.2-1.3); Blood Urea Nitrogen 11 mg/dL (7-17); Calcium 9.1 mg/dL (8.4-10.2); Carbon Dioxide 31 mmol/L (22-32); Chloride 99 mmol/L (98-107); Estimated Glomerular Filt Rate > 60.0 mL/min (>60); Globulin 2.5 g/dL (1.7-4.1); Glucose 96 mg/dL (80-110); HEMOLYSIS < 15 (0-50); Potassium 4.1 mmol/L (3.4-5.1); Sodium 134 mmol/L (137-145); Total Protein 6.7 g/dL (6.3-8.2)
[2020-07-04 10:17] LABS: Cholesterol 186 mg/dL (140-199); HDL Cholesterol 61 mg/dL (40-60); LDL Cholesterol Calculated 104 mg/dL (<100); Triglycerides 105 mg/dL (35-150)
[2020-07-05 09:50] LABS: Immunoglobulin G, Quantitative 606 mg/dL (586-1602)
== END ==
PROVIDERS: Internal Medicine Hematology & Oncology; PCP Internal Medicine; Referring Provider Internal Medicine Cardiovascular Disease; Visit Provider Internal Medicine Cardiovascular Disease
DX: I73.9 Peripheral vascular disease, unspecified (principal); E78.5 Hyperlipidemia, unspecified; D80.1 Nonfamilial hypogammaglobulinemia
CPT/HCPCS: 36415; 80053; 80061; 82784; 85025